=== PATIENT | female | born 1970 | race Caucasian/White ===

== ENCOUNTER 2019-07-06 08:00 | Outpatient (CLI) | payer BC | END 2019-07-06 23:59 | disposition home or self-care (01) | LOC: D.MAMMO 08:00 | PROVIDERS: ATTEND Nurse Practitioner | DX: Z12.31 Encounter for screening mammogram for malignant neoplasm of breast (principal) ==

== ENCOUNTER → 2019-08-10 12:23 | Outpatient (CLI) | payer BC | END | disposition home or self-care (01) | LOC: D.MAMMO 10:00 | PROVIDERS: ATTEND Nurse Practitioner | DX: R92.8 Other abnormal and inconclusive findings on diagnostic imaging of breast (principal) ==

== ENCOUNTER 2020-09-05 09:30 | Outpatient (CLI) | payer BC | END 2020-09-05 23:59 | disposition home or self-care (01) | LOC: D.MAMMO 09:30 | PROVIDERS: ATTEND Nurse Practitioner | DX: R92.8 Other abnormal and inconclusive findings on diagnostic imaging of breast (principal) ==